=== PATIENT | female | born 1970 | race African-American/Black ===

== ENCOUNTER 2017-08-01 12:28 | Emergency (ER) | payer BC ==
--- NOTE | 2017-08-01 13:12 | RAD ---
PORTABLE CHEST 1 VIEW: Date: 08/01/17 Time: 1217 hours HISTORY: Chest pain. FINDINGS: The heart size is normal. No focal areas of consolidation, pneumothorax, or pleural effusions are see n. IMPRESSION: No radiographic evidence of acute cardiopulmonary process. POS: [facility]
[2017-08-01 13:18] LABS: #Eosinphils 0.1 thou/uL (0.0-0.7); #Lymphocytes 2.2 thou/uL (1.20-3.40); #Monocytes 0.4 thou/uL (0.11-0.59); #Neutrophils 3.8 thou/uL (1.40-6.50); %Basophils 0.5 % (0.0-1.0); %Eosinophils 1.2 % (0.0-10.0); %Lymphocytes 33.9 % (21.0-51.0); %Monocytes 5.7 % (0.0-10.0); %Neutrophils 58.8 % (42.0-75.0); Hemoglobin 11.8 g/dL (12.0-16.0); Mean Corpuscular HGB CONC 33.7 g/dL (32.0-36.0); Mean Corpuscular Volume 89.3 fl (81.0-99.0); Mean Platelet Volume 7.3 fL (7.4-10.4); Platelet Count 252 thou/uL (130-400); RBC Distribution Width 12.3 % (11.5-14.5); Red Blood Cell (RBC) Count 3.92 mill/uL (4.20-5.40); White Blood Cell (WBC) Count 6.5 thou/uL (4.8-10.8)
[2017-08-01 13:47] LABS: ALT (SGPT) 11 U/L (8-55); AST (SGOT) 15 U/L (5-34); Alkaline Phosphatase 49 U/L (40-150); Anion Gap 12 mmol/L (10-20); BUN (Urea Nitrogen) 9 mg/dL (7.0-18.7); Bilirubin, Total 0.7 mg/dL (0.2-1.2); CK (CPK) 82 U/L (29-168); CKMB 0.3 ng/mL (0-6.6); Calc. Creatinine Clearance 0 mL/min (70-130); Calcium 8.9 mg/dL (7.8-10.44); Carbon Dioxide 22 mmol/L (22-29); Chloride 106 mmol/L (98-107); Estimated GFR-MDRD 90; Globulin 3.3 g/dL (2.4-3.5); Glucose 91 mg/dL (70-105); Potassium 3.9 mmol/L (3.5-5.1); Protein, Total 7.3 g/dL (6.0-8.3); Sodium 136 mmol/L (136-145); Troponin I Less than 0.010 ng/mL (< 0.028)
--- NOTE | 2017-08-27 23:40 | EKG ---
Test Reason : Blood Pressure : / mmHG Vent. Rate : 080 BPM Atrial Rate : 080 BPM P-R Int : 190 ms QRS Dur : 080 ms QT Int : 374 ms P-R-T Axes : 032 012 016 degrees QTc Int : 431 ms Normal sinus rhythm No STEMI Normal ECG Confirmed by LIONEL GRISSOM, BERNA Green ([id number]), book editor SUKHJINDER LATIF ([id number]) on 08/27/2017 11:40:20 PM Referred By: Confirmed By:BERNA FLOWERS MD
== END 2017-08-01 14:29 | disposition home or self-care (01) ==
LOC: ERS 12:28
DX: R07.2 Precordial pain (principal); E66.9 Obesity, unspecified; F41.9 Anxiety disorder, unspecified
CPT/HCPCS: 71045; 80053; 82553; 84484; 85025; 93005

== ENCOUNTER 2019-10-19 09:43 | Outpatient (CLI) | payer BC ==
--- NOTE | 2019-10-19 11:40 | MRI ---
MRI BRAIN WITH AND WITHOUT CONTRAST: DATE: 10/19/2019 HISTORY: 48-year-old female with headache and frequent syncope TECHNIQUE: Multiplanar, multisequence MRI of the brain obtained pre and post IV injection of gadolinium based co ntrast agent. FINDINGS: There is no obstructive hydrocephalus. There is no midline shift or any other evidence of mass effect . There is no extra-axial fluid collection. There is a large number of focal, less than 1 cm T2-hyperintensities in the cerebral white matter. These involve the subcortical and deep cerebral whi te matter and some in the periventricular white matter. There is no involvement of the brachium pontis or corpus callosum. These are nonspecific, but probably represent chronic ischemic white matte r changes due to microvascular atherosclerosis. The lesions are not classic for multiple sclerosis, and it would be highly unusual for a new diagnosis of MS at age 48. There is no abnormal enhancement, mass, recent hemorrhage, or restricted diffusion. There is an approximately 1.5 x 1 cm fluid-signal intensity lesion (hyperintense on T2 WI, hypointense on FLAIR and T1 WI, with no enhance ment) in the right petrous apex. It has no restricted diffusion. This is not consistent with a cholesterol granuloma or cholesteatoma of the petrous apex. It abuts, and may or may not communicate with right Meckel's cave. No dural venous sinus thrombosis. No signal abnormality identified in paranasal sinuses. Probable small bilateral mastoid effusions. Mild partially empty sella. IMPRESSION: 1) mild-moderate chronic ischemic white matter changes, greater than typical for this age group. 2) lesion at right petrous apex: Fluid trapped in pneumatized petrous apex air cell versus petrous ap ex cephalocele. This can be further evaluated with dedicated MRI of internal auditory canals, with attention to this location (attention instrumentation technologist: Include entire petrous apex. Do not repeat wh ole brain sequences. Ad thin slice T2 weighted axial and coronal sequences through petrous apices.). 3) probable bilateral mastoid effusions..
[2019-10-19] MEDS ORDERED: Magnevist 469MG/ML 20 ML VIAL ONE (12:41)
== END 2019-10-19 09:44 | disposition home or self-care (01) ==
LOC: TBSIIMAG 09:43
PROVIDERS: ATTEND Nurse Practitioner Acute Care
DX: R51 Headache (principal); I67.82 Cerebral ischemia; G93.9 Disorder of brain, unspecified
CPT/HCPCS: 70553; A9579

== ENCOUNTER 2019-11-29 13:39 | Outpatient (CLI) | payer BC ==
--- NOTE | 2019-11-29 14:20 | MMO ---
Bilateral MAMMO Bilat Screen [facility]. CLINICAL HISTORY: Patient is 48 years old and is seen for screening. The patient has the following family history of breast cancer: paternal aunt. The patient has no personal history of cancer. The patient has a history of bilateral Breast reduction in 2006 - benign. VIEWS: The views performed were: bilateral craniocaudal; bilateral craniocaudal with tomosynthesis; and bilateral mediolateral oblique with tomosynthesis. FILMS COMPARED: The present examination has been compared to prior imaging studies performed at [facility] on 11/07/2015 and 02/10/2017, and at [facility] on 02/19/2013 and 04/12/2014. This study has been interpreted with the assistance of computer-aided detection. MAMMOGRAM FINDINGS: There are scattered fibroglandular densities. Finding 1: There are stable benign appearing calcifications seen in both breasts. Finding 2: There are stable benign appearing densities seen in both breasts. There are no suspicious masses, suspicious calcifications, or new areas of architectural distortion. IMPRESSION: THERE IS NO MAMMOGRAPHIC EVIDENCE OF MALIGNANCY. A ROUTINE FOLLOW-UP MAMMOGRAM IN 1 YEAR IS RECOMMENDED. THE RESULTS OF THIS EXAM WERE SENT TO THE PATIENT. ACR BI-RADS Category 2 - Benign finding MAMMOGRAPHY NOTE: 1. A negative mammogram report should not delay a biopsy if a dominant of clinically suspicious mass is present. 2. Approximately 10% to 15% of breast cancers are not detected by mammography. 3. Adenosis and dense breasts may obscure an underlying neoplasm. Reported by: BEL LITTLE MD Electonically Signed: [id number]
== END 2019-11-29 13:40 | disposition home or self-care (01) ==
LOC: BICMAMMO 13:39
PROVIDERS: ATTEND Family Medicine
DX: Z12.31 Encounter for screening mammogram for malignant neoplasm of breast (principal); Z80.3 Family history of malignant neoplasm of breast; Z98.82 Breast implant status
CPT/HCPCS: 77063; 77067

== ENCOUNTER 2019-12-21 12:38 | Outpatient (CLI) | payer BC ==
--- NOTE | 2019-12-21 13:32 | RAD ---
LUMBAR SPINE TWO VIEWS: 12/21/19 HISTORY: Back pain with left lower extremity radiculopathy. FINDINGS: Lumbar pedicles appear intact on frontal imaging. There is anterolisthesis at L4-5 measuring approxim ately 1 cm. disc space narrowing with anterior osteophyte formation and mild bilateral facet hypertro phy noted at the L4-5 level. No acute osseous abnormality. IMPRESSION: Lower lumbar spine degenerative change as above. POS: [facility]
== END 2019-12-21 12:39 | disposition home or self-care (01) ==
LOC: BICRAD 12:38
PROVIDERS: ATTEND Family Medicine
DX: M54.42 Lumbago with sciatica, left side (principal); M47.816 Spondylosis without myelopathy or radiculopathy, lumbar region
CPT/HCPCS: 72100

== ENCOUNTER 2021-07-13 13:42 | Outpatient (CLI) | payer BC | END 2021-07-13 13:43 | disposition home or self-care (01) | LOC: SCSMRI 13:42 | PROVIDERS: ATTEND Family Medicine | DX: G93.2 Benign intracranial hypertension (principal); Z53.9 Procedure and treatment not carried out, unspecified reason | CPT/HCPCS: 82565 ==

== ENCOUNTER 2025-02-06 12:54 | Outpatient (CLI) | payer BC | END 2025-02-06 12:55 | disposition home or self-care (01) | LOC: CT 12:54 | PROVIDERS: ATTEND Family Medicine | DX: R31.9 Hematuria, unspecified (principal); N20.9 Urinary calculus, unspecified | CPT/HCPCS: 74176 ==